=== PATIENT | female | born 2000 | race Caucasian/White ===

== ENCOUNTER 2022-06-14 13:20 | Emergency (ER) | payer SELFPAY ==
[2022-06-14 14:56] LABS: ANION GAP 14.1 mmol/L (5-15)
[2022-06-14] MEDS ORDERED: Take Home: Sulfamethoxazole/Trimethoprim 800-160 MG Tab, 6 Tab Pack PO ONE (15:01)
[2022-06-14] MEDS ORDERED: Ketorolac 30 MG/ML SDV IM ONE (15:01)
== END 2022-06-14 15:12 | disposition home or self-care (01) ==
LOC: VM.ED 13:20
DX: R07.89 Other chest pain (principal); N39.0 Urinary tract infection, site not specified
CPT/HCPCS: 36415; 71046; 80053; 81001; 85025; 86140; 87086; 96372; 99283; 99285; A9270-GY; J1885